=== PATIENT | male | born 1960 | race Caucasian/White ===

== ENCOUNTER 2018-06-22 17:00 | Outpatient (RCR) | payer OTHER, SELFPAY ==
--- NOTE | 2018-01-12 18:58 | MASS.EVAL ---
Massage Therapy Evaluation: Initial Evaluation Date: 01/12/2018 SUBJECTIVE: Fabi is a 57 year old male who was referred to the [facility] facility for a massotherapy evaluation by Dr. Jose Daniel Coreas with the diagnosis of neck pain. Fabi presents today with the symptoms of neck and upper back pain and tension. He also has muscle tension in his low back and hips. Fabi reports having a medical history of right chondromalacia of the patella. He reports having minimal limitations during his daily activities. OBJECTIVE: Upon observation Fabi has poor posture with his head forward and shoulders forward from the neutral position in sitting and standing. After examination and palpation I found Fabi to have very high muscle tension with tenderness and myofascial restrictions in his sub occipitals, trapezius, rhomboids, scalenes, thoracic paraspinals. His hips and lumbar region were also tight. The medial aspect of his right knee was tender with palpation. The first treatment consisted of a one hour massage to his full body with myofascial release, muscle stripping, trigger point compression techniques, and cervical manual traction. ASSESSMENT: I feel that Fabi is a good candidate for massotherapy at this time. He had a favorable response to the first treatment with reduction in his muscle aches, pain and tension. He also had improvement in his cervical flexibility. PLAN: The plan of care was reviewed with the patient. The patient is to be seen on as needed basis for a total of ten sessions with the recommendation of once every four weeks for a one hour treatment.
--- NOTE | 2018-08-21 15:44 | DS.PCM_ITS ---
Massage Therapy Discharge Summary: Discharge Date: 08/21/2018 Fabi Ohara was seen for a massotherapy evaluation on 01/12/2018 with the diagnosis of back pain. He was treated with five sessions of massage therapy consisting of deep pressure soft tissue techniques, myofascial release and trigger point compression to his cervical, thoracic, lower back, upper extremities and hips. Fabi Ohara responded well to the therapy by reporting decreased tension and pain throughout his neck, shoulders, lower back and hips. His goals for therapy were met throughout the treatment sessions. At this time this patient is being discharged from our care at [facility] facility.
== END 2018-06-22 19:00 | disposition home or self-care (01) ==
LOC: MASS 17:00
PROVIDERS: Family Provider Family Medicine; PCP Family Medicine; Visit Provider Family Medicine
DX: M54.2 Cervicalgia (principal)
CPT/HCPCS: 97124

== ENCOUNTER → 2018-08-10 08:17 | Outpatient (CLI) | payer OTHER, SELFPAY ==
[2018-08-10 10:40] LABS: Anion Gap 4 (5-15); BUN 18 mg/dL (7-18); BUN/Creat Ratio 17.1 RATIO (10-20); Calcium,Total 8.4 mg/dL (8.5-10.1); Chloride 105 mmol/L (98-107); Cholesterol 164 mg/dL (200); Creatinine, Serum 1.05 mg/dL (0.70-1.30); EST Glomerular Filtration Rate 78 mL/min (>60); Est Glom Filt Rate - Afr Amer 94 mL/min (>60); Glucose 97 mg/dL (74-106); High Density Lipoprotein 56 mg/dL; Potassium 4.6 mmol/L (3.5-5.1); Sodium Level 141 mmol/L (136-145); Triglycerides 44 mg/dL; Very Low Density Lipoprotein 9 mg/dL (5-40)
== END ==
PROVIDERS: Family Provider Family Medicine; PCP Family Medicine; Referring Provider Family Medicine; Visit Provider Family Medicine
DX: E78.2 Mixed hyperlipidemia (principal)
CPT/HCPCS: 36415; 80048; 80061

== ENCOUNTER 2019-04-19 17:00 | Outpatient (RCR) | payer OTHER, SELFPAY ==
--- NOTE | 2018-11-14 14:09 | MASS.EVAL_ITS ---
Massage Therapy Evaluation: Initial Evaluation Date: 11/09/2018 SUBJECTIVE: Fabi Ohara is a 58 year old male who was referred to the [facility] facility for a massotherapy evaluation by Dr. Coreas with the diagnosis of neck and back pain. Fabi presents today with the symptoms of tension and pain in his neck, mid back and low back. Fabi reports having a past medical history arthritis and back pain. He reports having moderate improvement with exercise and stretching. OBJECTIVE: Upon observation Fabi has some posture issues with his head and shoulders forward from the neutral position in sitting and standing. After examination and palpation I found Fabi to have high muscle tension with tenderness and myofascial restrictions in his sub occipitals, levator scapulae, trapezius, rhomboids, scalenes, and thoracic paraspinals. His QL?s, lumbar paraspinals, piriformis, glute medius and minimus all were very tight with fascial restrictions, tender points and trigger points. The first treatment consisted of a one hour massage to his full body with myofascial release, muscle stripping, trigger point compression techniques, and cervical manual traction. ASSESSMENT: I feel that Fabi is a good candidate for massotherapy at this time. He had a favorable response to the first treatment with reduction in his muscle aches, pain and tension. He also had improvement in his cervical flexibility and low back flexibility. PLAN: The plan of care was reviewed with the patient. The patient is to be seen on an as needed basis for a total of ten sessions with the recommendation of once every month for a one hour treatment.
--- NOTE | 2019-08-23 12:57 | MASS.DISCH ---
Massage Therapy Discharge Summary: Discharge Date: 08/23/2019 Fabi was seen for a massotherapy evaluation on 11/09/2018 with the diagnosis of neck and back pain. He was treated with three sessions of massage therapy consisting of moderate to deep pressure soft tissue techniques, myofascial release and trigger point compression to his cervical, thoracic, lower back, upper extremities, hips and lower extremities. Fabi responded well to the therapy by reporting decreased tension and pain throughout his head, neck, shoulders, lower back and hips. His goals for therapy were met throughout the treatment sessions. At this time this patient is being discharged from our care at [facility] facility.
== END 2019-04-19 19:00 | disposition home or self-care (01) ==
LOC: MASS 17:00
PROVIDERS: Family Provider Family Medicine; PCP Family Medicine; Referring Provider Family Medicine; Visit Provider Family Medicine
DX: M54.9 Dorsalgia, unspecified (principal); M54.2 Cervicalgia
CPT/HCPCS: 97124

== ENCOUNTER → 2019-08-23 16:01 | Outpatient (CLI) | payer OTHER, SELFPAY ==
[2019-08-23 17:51] LABS: Anion Gap 5 (5-15); BUN 20 mg/dL (7-18); BUN/Creat Ratio 20.5 RATIO (10-20); Calcium,Total 8.5 mg/dL (8.5-10.1); Chloride 105 mmol/L (98-107); Cholesterol 168 mg/dL (200); Creatinine, Serum 0.98 mg/dL (0.70-1.30); EST Glomerular Filtration Rate 84 mL/min (>60); Est Glom Filt Rate - Afr Amer 102 mL/min (>60); Glucose 72 mg/dL (74-106); High Density Lipoprotein 68 mg/dL; PSA,Total - Annual Screen 0.21 ng/mL (0.00-4.00); Potassium 4.2 mmol/L (3.5-5.1); Sodium Level 139 mmol/L (136-145); Triglycerides 51 mg/dL; Very Low Density Lipoprotein 10 mg/dL (5-40)
== END ==
PROVIDERS: Family Provider Family Medicine; PCP Family Medicine; Referring Provider Family Medicine; Visit Provider Family Medicine
DX: I10 Essential (primary) hypertension (principal); E78.2 Mixed hyperlipidemia; Z12.5 Encounter for screening for malignant neoplasm of prostate; E78.5 Hyperlipidemia, unspecified
CPT/HCPCS: 36415; 80048; 80061; 84153; G0103

== ENCOUNTER 2020-07-08 16:00 | Outpatient (RCR) | payer OTHER, SELFPAY ==
--- NOTE | 2019-11-01 18:48 | MASS.EVAL_ITS ---
Massage Therapy Evaluation: Initial Evaluation Date: 11/01/2019 SUBJECTIVE: Fabi is a 59 year old male who was referred to the [facility] facility for a massotherapy evaluation by Dr. Coreas with the diagnosis of neck pain. Fabi presents today with the symptoms of pain and tension in his neck, shoulders, back and hips. He also complains radiating pain from his neck into his shoulders. Fabi reports that he has an unremarkable past medical history. He reports having minimal change in symptoms after stretching. OBJECTIVE: Upon observation Fabi has some posture issues with his head and shoulders forward from the neutral position in sitting and standing. After examination and palpation I found Fabi to have high muscle tension with tenderness and myofascial restrictions in his sub occipitals, levator scapulae, trapezius, rhomboids, scalenes, and paraspinals muscle group. His QL?s, lumbar paraspinals, piriformis, glute medius, glute minimus all had high tension with fascial restrictions and tender points. The first treatment consisted of a one hour massage to his full body with myofascial release, muscle stripping, trigger po int compression techniques. ASSESSMENT: I feel that Fabi is a good candidate for massotherapy at this time. He had a favorable response to the first treatment with reduction in his muscle aches, pa in and tension. He also had improvement in his cervical flexibility and low back flexibility. PLAN: The plan of care was reviewed with the patient. The patient is to be seen on an as needed basis for a total of ten sessions with the recommendation of once every month for a one hour treatment.
--- NOTE | 2020-09-02 18:52 | MASS.DISCH ---
Massage Therapy Discharge Summary: Discharge Date: 09/02/2020 Fabi was seen for a massotherapy evaluation on 10/16/2019 with the diagnosis of neck pain. He was treated with four sessions of massage therapy consisting of deep pressure soft tissue techniques, myofascial release and trigger point compression to his cervical, thoracic, lower back, lower extremities and hips. Fabi responded well to the therapy by reporting decreased tension and pain throughout his neck, shoulders, lower back and hips. His goals for therapy were met throughout the treatment sessions. At this time this patient is being discharged from our care at [facility] facility.
== END 2020-07-08 19:00 | disposition home or self-care (01) ==
LOC: MASS 16:00
PROVIDERS: Family Provider Family Medicine; PCP Family Medicine; Referring Provider Family Medicine; Visit Provider Family Medicine
DX: M54.2 Cervicalgia (principal)
CPT/HCPCS: 97124

== ENCOUNTER → 2020-07-23 07:34 | Outpatient (CLI) | payer OTHER, SELFPAY ==
[2020-07-23 10:55] LABS: Anion Gap 2 (5-15); BUN 20 mg/dL (7-18); BUN/Creat Ratio 18.3 RATIO (10-20); Calcium,Total 8.7 mg/dL (8.5-10.1); Chloride 106 mmol/L (98-107); Cholesterol 167 mg/dL (200); Creatinine, Serum 1.09 mg/dL (0.70-1.30); EST Glomerular Filtration Rate 74 mL/min (>60); Est Glom Filt Rate - Afr Amer 89 mL/min (>60); Glucose 88 mg/dL (74-106); High Density Lipoprotein 64 mg/dL; PSA,Total - Annual Screen 0.23 ng/mL (0.00-4.00); Potassium 4.4 mmol/L (3.5-5.1); Sodium Level 139 mmol/L (136-145); Triglycerides 57 mg/dL; Very Low Density Lipoprotein 11 mg/dL (5-40)
== END ==
PROVIDERS: PCP Family Medicine; Referring Provider Family Medicine; Visit Provider Family Medicine
DX: I10 Essential (primary) hypertension (principal); Z12.5 Encounter for screening for malignant neoplasm of prostate
CPT/HCPCS: 36415; 80048; 80061; 84153; G0103

== ENCOUNTER 2021-05-21 15:45 | Outpatient (RCR) | payer OTHER, SELFPAY ==
--- NOTE | 2020-10-21 18:57 | MASS.EVAL ---
Massage Therapy Evaluation: Initial Evaluation Date: 10/21/2020 SUBJECTIVE: Davey is a 60 year old male who was referred to the [facility] facility for a massotherapy evaluation by Dr. Coreas with the diagnosis of back pain. Davey presents today with the symptoms of pain and tension in his head, neck, shoulders, back, hips and hamstrings. Davey reports having a nonremarkable past medical history. Davey complains of tension headaches, neck tension, and back pain. He reports having minimal change in symptoms after his routine exercise stretching program. OBJECTIVE: Upon observation Davey has some posture issues with his head and shoulders forward from the neutral position in sitting and standing. After examination and palpation I found Davey to have high muscle tension with tenderness and myofascial restrictions in his sub occipitals, levator scapulae, trapezius, rhomboids, scalenes, and paraspinals muscle group. His QL?s, lumbar paraspinals, piriformis, glute medius, glute minimus and hamstrings all had high tension with fascial restrictions and tender points. The first treatment consisted of a one hour massage to his full body with myofascial release, muscle stripping, trigger point compression techniques. ASSESSMENT: I feel that Davey is a good candidate for massotherapy at this time. He had a favorable response to the first treatment with reduction in his muscle aches, pain and tension. He also had improvement in his cervical flexibility and low back flexibility. PLAN: The plan of care was reviewed with the patient. The patient is to be seen on an as needed basis for a total of ten sessions with the recommendation of once every month for a one hour treatment.
--- NOTE | 2021-08-24 12:36 | DS.PCM_ITS ---
Massage Therapy Discharge Summary: Discharge Date: 08/24/2021 Fabi was seen for a massotherapy evaluation on 10/21/2020 with the diagnosis of back pain. He was treated with three sessions of massage therapy consisting of deep pressure soft tissue techniques, myofascial release and trigger point compression to his cervical, thoracic, lower back and hips. Fabi responded well to the therapy by reporting decreased tension and pain throughout his neck, shoulders, lower back, lower extremities and hips. His goals for therapy were met throughout the treatment sessions. At this time this patient is being discharged from our care at [facility] facility.
== END 2021-05-21 19:00 | disposition home or self-care (01) ==
LOC: MASS 15:45
PROVIDERS: PCP Family Medicine; Referring Provider Family Medicine; Visit Provider Family Medicine
DX: M54.9 Dorsalgia, unspecified (principal)
CPT/HCPCS: 97124

== ENCOUNTER → 2021-08-27 07:12 | Outpatient (CLI) | payer OTHER, SELFPAY ==
[2021-08-27 10:43] LABS: PSA,Total - Annual Screen 0.39 ng/mL (0.00-4.00)
== END ==
PROVIDERS: PCP Family Medicine; Referring Provider Family Medicine; Visit Provider Family Medicine
DX: N40.0 Benign prostatic hyperplasia without lower urinary tract symptoms (principal)
CPT/HCPCS: 36415; 84153; G0103

== ENCOUNTER 2021-09-23 07:40 | Outpatient (CLI) | payer OTHER, SELFPAY ==
[2021-09-23 10:39] LABS: Anion Gap 4 (5-15); BUN 20 mg/dL (7-18); BUN/Creat Ratio 18.9 RATIO (10-20); Calcium,Total 8.6 mg/dL (8.5-10.1); Chloride 103 mmol/L (98-107); Cholesterol 164 mg/dL (200); Creatinine, Serum 1.06 mg/dL (0.70-1.30); EST Glomerular Filtration Rate 76 mL/min (>60); Est Glom Filt Rate - Afr Amer 92 mL/min (>60); Glucose 106 mg/dL (74-106); High Density Lipoprotein 65 mg/dL; Potassium 4.4 mmol/L (3.5-5.1); Sodium Level 137 mmol/L (136-145); Triglycerides 60 mg/dL; Very Low Density Lipoprotein 12 mg/dL (5-40)
== END 2021-09-23 23:59 | disposition short-term general hospital (02) ==
PROVIDERS: PCP Family Medicine; Referring Provider Family Medicine; Visit Provider Family Medicine
DX: I10 Essential (primary) hypertension (principal)
CPT/HCPCS: 36415; 80048; 80061

== ENCOUNTER → 2022-09-22 | Outpatient (CLI) | payer OTHER, SELFPAY ==
[2022-09-22 09:37] LABS: Anion Gap 5 (5-15); BUN 20 mg/dL (7-18); BUN/Creat Ratio 18.5 RATIO (10-20); Calcium,Total 8.8 mg/dL (8.5-10.1); Chloride 107 mmol/L (98-107); Cholesterol 166 mg/dL (200); Creatinine, Serum 1.08 mg/dL (0.70-1.30); EST Glomerular Filtration Rate 74 mL/min (>60); Est Glom Filt Rate - Afr Amer 90 mL/min (>60); Glucose 97 mg/dL (74-106); High Density Lipoprotein 75 mg/dL; PSA,Total - Annual Screen 0.24 ng/mL (0.00-4.00); Potassium 4.5 mmol/L (3.5-5.1); Sodium Level 142 mmol/L (136-145); Triglycerides 32 mg/dL; Very Low Density Lipoprotein 6 mg/dL (5-40)
[2022-09-24 20:37] LABS: V-Zoster IgG (Immunity) 1033 index (Immune >165)
== END | disposition home or self-care (01) ==
LOC: LAB 07:55
PROVIDERS: PCP Family Medicine; Referring Provider Family Medicine; Visit Provider Family Medicine
DX: Z00.00 Encounter for general adult medical examination without abnormal findings (principal); Z12.5 Encounter for screening for malignant neoplasm of prostate
CPT/HCPCS: 36415; 80048; 80061; 84153; 86787; G0103

== ENCOUNTER 2023-09-16 08:45 | Outpatient (CLI) | payer OTHER, SELFPAY ==
--- OUTSIDE RECORDS SUMMARY | 2023-09-16 09:11 | XMS RPT_ITS | CCD ---
Author Name Unknown Address [address] [place] [id number] Organization [facility] Care Team Providers Care [employer] Name Role Phone Sandie Roque LPN Unavailable Unavailab le Sandie Roque LPN Unavailable Unavailab le Medications Completed/Discontinued Medications Medication Drug Class(es) Dates Sig (Normalized) Sig (Original) MOEXIPRIL HCL TABS (2 sources) Angiotensin Converting Enzyme Inhibitor Start: 06-04-2017 MOEXIPRIL HCL TABS as directed MOEXIPRIL HCL TABS [id number] Sandie Roque LPN Problems Problem Classification Problem Date Documented Da te Episodic/Chronic Conditions associated with dizziness or vertigo (2 sources) Dizziness; Translations: [Dizziness and giddiness] Onset: 06-04-2017 06-04-2017 Episodic Results Test Name Value Interpretation Reference Range Facil ity Vital Signs Date Time Vital Sign Value Performing Clinician Gareth kelley 06-04-2017 10:00-0400 BMI (Body Mass Index) 26.37 kg/m2 Sandie Roque LPN [facility] No [facility] Clinic Work Phone: 06-04-2017 10:00-0400 Body Temperature 97.3 [degF] Sandie Roque LPN [facility] Now Cli katie Work Phone: 06-04-2017 10:00-0400 BP Diastolic 94 mm[Hg] Sandie Roque LPN [facility] Now Clin ic Work Phone: 06-04-2017 10:00-0400 BP Systolic 132 mm[Hg] Sandie Roque LPN [facility] Now Clin ic Work Phone: 06-04-2017 10:00-0400 Height 175.26 cm Sandie Roque LPN [facility] Now [facility] ic Work Phone: 06-04-2017 10:00-0400 Pulse (Heart Rate) 60 /min Sandie Roque LPN [facility] Now C linic Work Phone: 06-04-2017 10:00-0400 Respiratory Rate 15 /min Sandie Roque LPN [facility] Work Phone: 06-04-2017 10:00-0400 Weight 81.01 kg Sandie Roque LPN [facility] Now Clin ic Work Phone: Plan of Treatment Date Care Activity Detail Author Start: 06-04-2017 End: 06-04-2017 Appointment Appointment [facility] Now Clinic Work Phone: Patient Education DIZZINESS [facility] Now Cl inic Work Phone: Additional Source Comments FOR RECORDS PERTAINING TO PATIENTS WHO ARE OR HAVE BEEN ENROLLED IN A CHEMICAL DEPENDENCY/SUBSTANCEABUSE PROGRAM, SOME INFORMATION MAY BE OMITTED. This clinical summary was aggregated from multiple sources. Caution should be exercised in using it in the provision of clinical care. This summary normalizes information from multiple sources, and as a consequence, information in this document may materially change the coding, format and clinical context of patient data. In addition, data may be omitted in some cases. CLINICAL DECISIONS SHOULD BE BASED ON THE PRIMARY CLINICAL RECORDS. [employer] [facility]. provides no warranty or guarantee of the accuracy or completeness of information in this document.
== END 2023-09-16 23:59 | disposition home or self-care (01) ==
LOC: MTLAB 08:46
PROVIDERS: PCP Family Medicine; Referring Provider Family Medicine; Visit Provider Family Medicine
DX: Z00.00 Encounter for general adult medical examination without abnormal findings (principal)
CPT/HCPCS: 80048; 80061; 84403

== ENCOUNTER → 2023-09-23 | Outpatient (CLI) | payer OTHER, SELFPAY ==
--- OUTSIDE RECORDS SUMMARY | 2023-09-23 08:01 | XMS RPT_ITS | CCD ---
Author Name Unknown Address [address] [place], [place] [id number] Organization [facility] Care Team Providers Care [employer] Name Role Phone Sandie Roque LPN Unavailable Unavailab le Sandie Roque LPN Unavailable Unavailab le Medications Completed/Discontinued Medications Medication Drug Class(es) Dates Sig (Normalized) Sig (Original) MOEXIPRIL HCL TABS (2 sources) Angiotensin Converting Enzyme Inhibitor Start: 06-04-2017 MOEXIPRIL HCL TABS as directed MOEXIPRIL HCL TABS [id number] Sandie Roque LPN Problems Problem Classification Problem Date Documented Da te Episodic/Chronic Conditions associated with dizziness or vertigo (2 sources) Dizziness; Translations: [Dizziness and giddiness] Onset: 06-04-2017 06-04-2017 Episodic Results Test Name Value Interpretation Reference Range Facil ity Vital Signs Date Time Vital Sign Value Performing Clinician Gareth kelley 06-04-2017 10:00-0400 BMI (Body Mass Index) 26.37 kg/m2 Sandie Roque LPN [facility] No [facility] Clinic Work Phone: 06-04-2017 10:00-0400 Body Temperature 97.3 [degF] Sandie Roque LPN [facility] Now [facility] Work Phone: 06-04-2017 10:00-0400 BP Diastolic 94 mm[Hg] Sandie Roque LPN [facility] Now Clin ic Work Phone: 06-04-2017 10:00-0400 BP Systolic 132 mm[Hg] Sandie Roque LPN [facility] Now [facility] ic Work Phone: 06-04-2017 10:00-0400 Height 175.26 cm Sandie Roque LPN [facility] Now [facility] ic Work Phone: 06-04-2017 10:00-0400 Pulse (Heart Rate) 60 /min Sandie Roque LPN [facility] Now C [facility]inic Work Phone: 06-04-2017 10:00-0400 Respiratory Rate 15 /min Sandie Roque LPN [facility] Work Phone: 06-04-2017 10:00-0400 Weight 81.01 kg Sandie Roque LPN [facility] Now [facility] ic Work Phone: Plan of Treatment Date Care Activity Detail Author Start: 06-04-2017 End: 06-04-2017 Appointment Appointment [facility] Now [facility] Work Phone: Patient Education DIZZINESS [facility] Now Cl inic Work Phone: Additional [...] BE BASED ON THE PRIMARY CLINICAL RECORDS. [facility] [employer] [facility]. provides no warranty or guarantee of the accuracy or completeness of information in this document.
[2023-09-23 10:45] LABS: Anion Gap 2 (5-15); BUN 22 mg/dL (7-18); Calcium,Total 9.1 mg/dL (8.5-10.1); Chloride 108 mmol/L (98-107); Cholesterol 187 mg/dL (200); EST Glomerular Filtration Rate 81 mL/min (>60); Est Glom Filt Rate - Afr Amer 98 mL/min (>60); Glucose 101 mg/dL (74-106); High Density Lipoprotein 62 mg/dL; PSA,Total - Annual Screen 0.25 ng/mL (0.00-4.00); Potassium 4.4 mmol/L (3.5-5.1); Sodium Level 140 mmol/L (136-145); Triglycerides 65 mg/dL; Very Low Density Lipoprotein 13 mg/dL (5-40)
== END | disposition home or self-care (01) ==
LOC: MTLAB 07:59
PROVIDERS: PCP Family Medicine; Referring Provider Family Medicine; Visit Provider Family Medicine
DX: Z13.1 Encounter for screening for diabetes mellitus (principal); Z13.220 Encounter for screening for lipoid disorders; R53.83 Other fatigue; Z12.5 Encounter for screening for malignant neoplasm of prostate
CPT/HCPCS: 36415; 80048; 80061; 84153; 84403; G0103

== ENCOUNTER → 2024-10-03 | Outpatient (CLI) | payer OTHER, SELFPAY ==
[2024-10-03 10:37] LABS: Anion Gap 5 (5-15); BUN 11 mg/dL (7-18); BUN/Creat Ratio 11.8 RATIO (10-20); Calcium,Total 8.7 mg/dL (8.5-10.1); Chloride 106 mmol/L (98-107); Cholesterol 178 mg/dL (200); Creatinine, Serum 0.93 mg/dL (0.70-1.30); EST Glomerular Filtration Rate 88 mL/min (>60); Est Glom Filt Rate - Afr Amer 106 mL/min (>60); Glucose 101 mg/dL (74-106); High Density Lipoprotein 69 mg/dL; PSA,Total - Annual Screen 0.23 ng/mL (0.00-4.00); Potassium 4.5 mmol/L (3.5-5.1); Sodium Level 141 mmol/L (136-145); Triglycerides 60 mg/dL; Very Low Density Lipoprotein 12 mg/dL (5-40)
== END | disposition home or self-care (01) ==
LOC: MTLAB 08:00
PROVIDERS: PCP Family Medicine; Referring Provider Family Medicine; Visit Provider Family Medicine
DX: E78.2 Mixed hyperlipidemia (principal); I10 Essential (primary) hypertension; N40.0 Benign prostatic hyperplasia without lower urinary tract symptoms
CPT/HCPCS: 36415; 80048; 80061; 84153; G0103